=== PATIENT | male | born 1995 | race Caucasian/White ===

== ENCOUNTER 2017-03-31 09:10 | Emergency (ER) | payer SELFPAY ==
[~2017-03-31] VITALS: Ht 198.1 cm; Wt 115.0 kg
[2017-03-31 09:11] VITALS: BP 138/78; PULSE 71; RESP 14; TEMP 98; O2SAT 98
[2017-03-31] MEDS ORDERED: LORazepam 1 MG TAB PO ONE (09:45)
--- NOTE | 2017-03-31 09:48 | PD ---
HPI Chief Complaint: Anxiety Time Seen by Provider: 09:28 Travel History International Travel<30 days: No Contact w/Intl Traveler<30days: No Traveled to known affect area: No History of Present Illness HPI Is a 21-year-old man who presents to the emergency department complaining that he woke up with burning pain in his throat. He states that they started feeling like he was getting an anxiety attack with some chest pain. He states he's been seen innumerable times in the ER for these symptoms back home, and never found anything wrong. He states he just gets so anxious she is worried something else may be wrong. He feels better now. He was stringing alcohol last night. He took a Xanax this morning to see if it would help. Denies any other illicit drug use. No other complaints. History Past Medical History Narrative Medical Anxiety Social History Tobacco Use: No Allergies-Medications (Allergen,Severity, Reaction): Coded Allergies: Amoxicillin (Verified Allergy, Unknown, 03/31/17) Review of Systems Except as stated in HPI: all other systems reviewed are Neg Physical Exam Narrative GENERAL: 21-year-old man, no acute distress. SKIN: Focused skin assessment warm/dry. HEAD: Atraumatic. Normocephalic. CARDIOVASCULAR: Regular rate and rhythm. No murmur appreciated. RESPIRATORY: No accessory muscle use. Clear to auscultation. Breath sounds equal bilaterally. GASTROINTESTINAL: Abdomen soft, non-tender, nondistended. Hepatic and splenic margins not palpable. MUSCULOSKELETAL: No obvious deformities. No clubbing. No cyanosis. No edema. NEUROLOGICAL: Awake and alert. No obvious cranial nerve deficits. Motor grossly within normal limits. Normal speech. PSYCHIATRIC: Appropriate mood and affect; insight and judgment normal. Data Data Last Documented VS Vital Signs Date Time Temp Pulse Resp B/P Pulse Ox O2 Delivery O2 Flow Rate FiO2 03/31/17 09:11 98.0 71 14 138/78 98 Room Air Orders Lorazepam (Ativan) (03/31/17 09:45) Electrocardiogram (03/31/17 ) MDM Medical Decision Making Medical Screen Exam Complete: Yes Emergency Medical Condition: Yes Interpretation(s) My review of EKG: Normal sinus rhythm at a rate of 60, normal axis, QRS intervals little bit long at 141, no other evidence of acute ischemia. Differential Diagnosis Anxiety, electrolyte abnormality, reflux or GERD, other Narrative Course Medical decision-making this is a 21-year-old man who presents emergent department cleaning of some throat pain and chest tightness following a night of heavy drinking. Also states he has anxiety. He recounted it is been seen innumerable times in the past year for similar symptoms in his home ER. Reports that nothing is ever been found. He looks well now. He is in no distress. His EKG is a little bit abnormal with a wide QRS at 141. We have unfortunately no old for comparison. Nonetheless, I don't think this is associated with the patient's current complaints and there is no evidence of myocardial ischemia on the EKG. We'll recommend outpatient follow-up. Diagnosis Primary Impression: Anxiety Additional Impression: Reflux esophagitis Additional Instructions: Avoid heavy alcohol consumption. Return to the emergency department for any worsening chest pain or trouble breathing follow-up with your primary physician in the next one to 2 weeks. Disposition: 01 DISCHARGE HOME Condition: Stable Fabian Plascencia MD Mar 31, 2017 09:48
[2017-03-31 10:44] VITALS: BP 122/78
--- NOTE | 2017-03-31 15:33 | EKG ---
Date Performed: 03/31/2017 Time Performed: 09:41:56 PTAGE: 21 years EKG: Sinus rhythm INTRAVENTRICULAR CONDUCTION DELAY ABNORMAL ECG NO PREVIOUS TRACING DOCTOR: Sd Jarvis Interpretating Date/Time 03/31/2017 15:31:48
== END 2017-03-31 10:46 | disposition home or self-care (01) ==
LOC: NEPD 09:10
DX: F41.9 Anxiety disorder, unspecified (principal); K21.0 Gastro-esophageal reflux disease with esophagitis; R94.31 Abnormal electrocardiogram [ECG] [EKG]; Z88.0 Allergy status to penicillin
CPT/HCPCS: 93005; 99283

== ENCOUNTER 2017-07-16 13:16 | Emergency (ER) | payer OTHER, BC ==
[~2017-07-16] VITALS: Ht 198.1 cm; Wt 114.0 kg
[2017-07-16 13:18] VITALS: BP 130/65; PULSE 68; RESP 18; TEMP 98.3; O2SAT 95
[2017-07-16] MEDS ORDERED: DIAZ5 PO (14:29)
--- NOTE | 2017-07-16 14:29 | PD ---
HPI Chief Complaint: Chest Pain Time Seen by Provider: 14:01 Travel History International Travel<30 days: No Contact w/Intl Traveler<30days: No Traveled to known affect area: No History of Present Illness HPI 22 yo M c/o chest pain intermittently for months. pain started this morning and associated with palpitations. pt wonders if xanax may be contributing, as symptoms improve after stopping it however return after effects wear off. no dyspnea. no radiation. retrosternal is location. pt reports multiple evaluation including myocardial perfusion scans, chest pain center evaluations. no fever or cough. PFSH Social History Alcohol Use: Yes Tobacco Use: No Substance Use: No Allergies-Medications (Allergen,Severity, Reaction): Coded Allergies: amoxicillin (Unverified Allergy, Unknown, 05/17/17) Reported Meds & Prescriptions Reported Meds & Active Scripts Active Valium (Diazepam) 5 Mg Tab 5 Mg PO BID PRN Review of Systems Except as stated in HPI: all other systems reviewed are Neg General / Constitutional: No: Fever Physical Exam Narrative GENERAL: 22 yo M, WNWD, NAD SKIN: Warm and dry. HEAD: Atraumatic. Normocephalic. EYES: Pupils equal and round. No scleral icterus. No injection or drainage. ENT: No nasal bleeding or discharge. Mucous membranes pink and moist. NECK: Trachea midline. No JVD. CARDIOVASCULAR: Regular rate and rhythm. RESPIRATORY: No accessory muscle use. Clear to auscultation. Breath sounds equal bilaterally. GASTROINTESTINAL: Abdomen soft, non-tender, nondistended. Hepatic and splenic margins not palpable. MUSCULOSKELETAL: Extremities without clubbing, cyanosis, or edema. No obvious deformities. NEUROLOGICAL: Awake and alert. No obvious cranial nerve deficits. Motor grossly within normal limits. Five out of 5 muscle strength in the arms and legs. Normal speech. PSYCHIATRIC: Appropriate mood and affect; insight and judgment normal. Data Data Last Documented VS Vital Signs Date Time Temp Pulse Resp B/P (MAP) Pulse Ox O2 Delivery O2 Flow Rate FiO2 07/16/17 14:53 07/16/17 13:18 98.3 68 18 95 Vital Signs Date Time Temp Pulse Resp B/P (MAP) Pulse Ox O2 Delivery O2 Flow Rate FiO2 07/16/17 14:53 07/16/17 13:18 98.3 68 18 130/65 (86) 95 Orders Orders Electrocardiogram (07/16/17 14:02) Chest, Single Ap (07/16/17 14:02) Ed Discharge Order (07/16/17 14:29) MDM Medical Decision Making Medical Screen Exam Complete: Yes Emergency Medical Condition: Yes Medical Record Reviewed: Yes Differential Diagnosis anxiety, atypical cp, ptx Narrative Course atypical symptoms valium script follow up with pmd Diagnosis Primary Impression: Anxiety Additional Impression: Chest pain Qualified Codes: R07.9 - Chest pain, unspecified Med/Other Pt SpecificInfo: Prescription(s) given Scripts Diazepam (Valium) 5 Mg Tab 5 MG PO BID Y for MODERATE TO SEVERE ANXIETY, #20 TAB 0 Refills Prov: Clarke Mac MD 07/16/17 Disposition: 01 DISCHARGE HOME Condition: Stable Clarke Mac MD Jul 16, 2017 14:29
--- NOTE | 2017-07-16 14:46 | RADRPT ---
EXAM DATE/TIME: 07/16/2017 14:19 [facility] COMPARISON: No previous studies available for comparison. INDICATIONS : Chest pain. MEDICAL HISTORY : None. SURGICAL HISTORY : None. ENCOUNTER: Initial ACUITY: 1 day PAIN SCORE: 10/10 LOCATION: Bilateral chest FINDINGS: A single view of the chest demonstrates the lungs to be symmetrically aerated without evidence of mas s, infiltrate or effusion. The cardiomediastinal contours are unremarkable. Osseous structures are intact. CONCLUSION: 1. No acute cardiopulmonary disease. Arthur Bergman MD on July 16, 2017 at 14:44 Board Certified Radiologist. This report was verified electronically.
--- NOTE | 2017-07-16 16:20 | EKG ---
Date Performed: 07/16/2017 Time Performed: 14:02:34 PTAGE: 22 years EKG: SINUS BRADYCARDIA INTRAVENTRICULAR CONDUCTION DELAY ABNORMAL ECG No significant change from prior electrocardiogram. PREVIOUS TRACING : 03/31/2017 09.41 DOCTOR: Rene Sanchez Interpretating Date/Time 07/16/2017 16:19:06
== END 2017-07-16 14:59 | disposition home or self-care (01) ==
LOC: NEPD 13:16
DX: R07.89 Other chest pain (principal); F41.9 Anxiety disorder, unspecified
CPT/HCPCS: 71010; 93005; 99284